=== PATIENT | male | born 1945 | race Caucasian/White ===

== ENCOUNTER 2025-04-06 22:53 | Inpatient (IN) | payer MEDICARE ==
[~2025-04-06] VITALS: Ht 177.8 cm; Wt 81.6 kg
[2025-04-07] MEDS ORDERED: IBUPROFEN 400 MG TABLET ONE (01:45)
[2025-04-07] MEDS: IBUPROFEN 400 MG TABLET PO ONE (02:00)
[2025-04-07 02:24] LABS: PLATELET COUNT (AUTO) 141 K/uL (150-450); RED BLOOD CELL COUNT(AUTO) 4.99 MIL/uL (4.5-6.0); RED CELL DISTRIBUTION WIDTH 13.0 % (11.5-15.0); WHITE BLOOD COUNT (AUTO) 10.5 K/uL (4.3-11.0)
[2025-04-07 02:30] LABS: INR 1.05 (0.91-1.10)
[2025-04-07 02:32] LABS: APPEARANCE,URINE CLEAR (CLEAR); BLOOD, URINE NEGATIVE Ery/uL (NEGATIVE); LEUKOCYTE ESTERASE ,URINE NEGATIVE (NEGATIVE); NITRITE, URINE POSITIVE (NEGATIVE); UGLUCOSE NEGATIVE (NEGATIVE)
[2025-04-07 02:50] LABS: ADD URINE CULTURE YES; FINE GRANULAR CASTS,URINE Rare /LPF (None Seen); HYALINE CASTS, URINE Rare /LPF (None Seen); SQUAMOUS EPITHELIAL CELL,UR Rare /HPF (None Seen)
[2025-04-07 03:00] LABS: CALCIUM, SERUM 9.5 mg/dL (8.5-10.1); CREATININE 1.0 mg/dL (0.6-1.3); SODIUM SERUM 137 mmol/L (136-145); UREA NITROGEN, BLOOD 24 mg/dL (7-18)
[2025-04-07 03:06] LABS: ASPARTATE AMINOTRANSFERASE 29 U/L (15-37); TOTAL PROTEIN, SERUM 8.2 g/dL (6.4-8.2)
[2025-04-07 03:12] LABS: LACTIC ACID 2.0 mmol/L (0.4-2.0)
[2025-04-07] MEDS ORDERED: CEFTRIAXONE 1GM BAG (ER ONLY) 50 ML IV ONE (03:27)
[2025-04-07] MEDS: CEFTRIAXONE 1GM BAG (ER ONLY) 1 GM/50 ML PIGGYBACK IV ONE (03:33)
[2025-04-07] MEDS: IV NS 0.9% 1,000 ML BAG IV ONE (03:33)
[2025-04-07] MEDS ORDERED: ACETAMINOPHEN 325 MG TABLET PO PRN (06:30)
[2025-04-07] MEDS ORDERED: MAGNESIUM HYDROXIDE 30 ML UDC PO PRN (06:30)
[2025-04-07] MEDS ORDERED: ONDANSETRON HCL/PF 4 MG/2 ML VIAL IVP PRN (06:30)
[2025-04-07] MEDS ORDERED: MAG HYDROX/AL HYDROX/SIMETH 30 ML UDC PO PRN (06:30)
[2025-04-07 06:40] LABS: PLATELET COUNT (AUTO) 134 K/uL (150-450); RED BLOOD CELL COUNT(AUTO) 4.39 MIL/uL (4.5-6.0); RED CELL DISTRIBUTION WIDTH 12.9 % (11.5-15.0); WHITE BLOOD COUNT (AUTO) 9.5 K/uL (4.3-11.0)
[2025-04-07 07:13] LABS: CALCIUM, SERUM 8.5 mg/dL (8.5-10.1); CREATININE 0.9 mg/dL (0.6-1.3); PHOSPHORUS 3.2 mg/dL (2.5-4.9); SODIUM SERUM 139.0 mmol/L (136-145); UREA NITROGEN, BLOOD 24.0 mg/dL (7-18)
[2025-04-07 07:52] VITALS: BP 144/76; TEMP 99.1; O2SAT 96
[2025-04-07] MEDS: PANTOPRAZOLE 40 MG TABLET.DR PO SCH (09:00)
[2025-04-07] MEDS: ENOXAPARIN SODIUM 40 MG/0.4 ML DISP.SYRIN SQ SCH (09:01)
[2025-04-07] MEDS: IV NS 0.9% 1,000 ML IV PRN (10:02)
[2025-04-07 12:00] VITALS: BP 115/56; TEMP 98.7; O2SAT 95
[2025-04-07 16:00] VITALS: BP 107/68; TEMP 98.2; O2SAT 95
[2025-04-07 20:00] VITALS: BP 123/70; TEMP 98.1; O2SAT 98
[2025-04-08] VITALS: BP 127/77; TEMP 98.6; O2SAT 99
[2025-04-08 04:00] VITALS: BP 128/74; TEMP 98.2; O2SAT 98
[2025-04-08 06:32] LABS: PLATELET COUNT (AUTO) 125 K/uL (150-450); RED BLOOD CELL COUNT(AUTO) 4.19 MIL/uL (4.5-6.0); RED CELL DISTRIBUTION WIDTH 12.9 % (11.5-15.0); WHITE BLOOD COUNT (AUTO) 6.5 K/uL (4.3-11.0)
[2025-04-08 06:35] LABS: CALCIUM, SERUM 8.3 mg/dL (8.5-10.1); CREATININE 0.8 mg/dL (0.6-1.3); PHOSPHORUS 3.0 mg/dL (2.5-4.9); SODIUM SERUM 139.0 mmol/L (136-145); UREA NITROGEN, BLOOD 26.0 mg/dL (7-18)
[2025-04-08 08:00] VITALS: BP 136/94; TEMP 98.2; O2SAT 99
[2025-04-08] MEDS ORDERED: IOHEXOL-350 100 ML VIAL IV ONE (09:00)
[2025-04-08] MEDS ORDERED: APIX5TAB PO (09:02)
[2025-04-08] MEDS ORDERED: LEVO250T59 PO (09:02)
[2025-04-08] MEDS: CEFTRIAXONE 1 G in IV D5W 50 ML IV SCH (09:47)
== END 2025-04-08 13:31 | disposition home or self-care (01) | DRG 552 ==
LOC: ER 23:03 → ICU IN 04-07 06:04 → TELE1 04-07 08:07
PROVIDERS: ADMIT Internal Medicine; ATTEND Internal Medicine
DX: S12.031A Nondisplaced posterior arch fracture of first cervical vertebra, initial encounter for closed fracture (principal); N39.0 Urinary tract infection, site not specified; Z59.00 Homelessness unspecified; S12.091A Other nondisplaced fracture of first cervical vertebra, initial encounter for closed fracture; W07.XXXA Fall from chair, initial encounter; Y92.009 Unspecified place in unspecified non-institutional (private) residence as the place of occurrence of the external cause; M17.11 Unilateral primary osteoarthritis, right knee; M48.01 Spinal stenosis, occipito-atlanto-axial region; I48.91 Unspecified atrial fibrillation; Z79.01 Long term (current) use of anticoagulants
CPT/HCPCS: 36415; 70450-TC; 70498-TC; 71045-TC; 72125-TC; 72141-TC; 80048-TC; 80076-TC; 81001; 83605-TC; 83735-TC; 84100-TC; 84443-TC; 85025-TC; 85730-TC; 87040-TC; 87086-TC; 93307-TC; 97116-TC; 97530-TC; A4223; G0378; J0696; J1650; J7030; J7060; Q9967